=== PATIENT | male | born 1980 | race Caucasian/White ===

== ENCOUNTER 2023-05-25 20:51 | Inpatient (IN) | payer SELFPAY ==
[2023-05-25 22:06] VITALS: BMI 28.0
[2023-05-25] MEDS ORDERED: Ketorolac Tromethamine 30 MG/ML VIAL IVP PRN (22:15)
[2023-05-25] MEDS ORDERED: Ondansetron PF 4 MG/2 ML Vial IVP PRN (22:16)
[2023-05-25] MEDS ORDERED: Ondansetron ODT 4 MG TAB PO PRN (22:17)
[2023-05-25] MEDS ORDERED: Acetaminophen 325 MG TAB PO PRN (22:19)
[2023-05-25] MEDS ORDERED: FLU VACC QS2023-24(6MOS UP)/PF 60 MCG/0.5 ML SYRINGE IM ONE (22:30)
[2023-05-25] MEDS ORDERED: Zolpidem Tartrate 5 MG TAB PO PRN (22:54)
[2023-05-25] MEDS ORDERED: Guaifenesin DM 100-10/5 ML UDCUP PO PRN (22:54)
[2023-05-25] MEDS ORDERED: Calcium Carbonate 500 MG ChewTAB PO PRN (22:54)
[2023-05-25] MEDS ORDERED: Ventolin HFA Inhaler 60 PUFF INHALER INH PRN (22:57)
[2023-05-25] MEDS ORDERED: Ipratropium/Albuterol 3 ML NEB NEB SCH (23:00)
[2023-05-25] MEDS: HYDROcodone/Acetaminophen 5/325 mg Tablet PO PRN (23:23)
[2023-05-25] MEDS: Cefepime 2 GM in Sodium Chloride 0.9% 100 ML IVPB SCH (23:27)
[2023-05-25] MEDS ORDERED: Nicotine 14 MG PATCH TD SCH (23:59)
[2023-05-25] MEDS ORDERED: Lactated Ringer's 1,000 ML IV SCH (23:59)
[2023-05-26 03:40] LABS: Legionella Urinary Ag Negative (Negative); Strep pneumo Urine Ag NEGATIVE (NEGATIVE)
[2023-05-26] MEDS: HYDROcodone/Acetaminophen 5/325 mg Tablet PO PRN ×3 (04:25→20:53)
[2023-05-26 06:18] LABS: #Monocytes 0.9 10x3/uL (0.0-1.1); #Neutrophils 14.2 10x3/uL (1.5-8.4); %Basophils 0.2 % (0.0-2.0); %Eosinophils 0.1 % (0.0-6.0); %Lymphocytes 10.7 % (18.0-47.0); %Monocytes 5.3 % (0.0-10.0); %Neutrophils 82.6 % (40.0-75.0); Hematocrit 33.3 % (38.8-50.0); Hemoglobin 11.6 g/dL (13.5-17.5); Mean Corpuscular HGB CONC 34.8 g/dL (32.0-36.0); Mean Corpuscular Hemoglobin 29.2 pg (27.0-33.0); Mean Corpuscular Volume 83.9 fl (81.2-95.1); Mean Platelet Volume 10.2 fl (7.4-10.4); Platelet Count 422 10x3/uL (150-450); RBC Distribution Width 12.9 % (11.5-14.5); Red Blood Cell (RBC) Count 3.97 10x6/uL (4.32-5.72); White Blood Cell (WBC) Count 17.1 10x3/uL (3.5-10.5)
[2023-05-26 06:31] LABS: Anion Gap 14 mmol/L (10-20); BUN (Urea Nitrogen) 11 mg/dL (8.9-20.6); Calc. Creatinine Clearance 154 mL/min (70-130); Calcium 9.1 mg/dL (7.8-10.44); Carbon Dioxide 21 mmol/L (22-29); Chloride 108 mmol/L (98-107); Estimated GFR 112; Glucose 151 mg/dL (70-105); Potassium 3.6 mmol/L (3.5-5.1); Sodium 139 mmol/L (136-145)
[2023-05-26] MEDS ORDERED: Doxycycline 100 MG in Sodium Chloride 0.9% 100 ML IVPB SCH (09:00)
[2023-05-26] MEDS: Famotidine 20 MG TAB PO SCH ×2 (09:36→20:39)
[2023-05-26] MEDS: Benzonatate 100 MG CAP PO SCH ×3 (09:36→20:39)
[2023-05-26] MEDS: Senokot S 8.6-50 MG TAB PO PRN (09:36)
[2023-05-26] MEDS ORDERED: Lorazepam 1 MG TAB PO PRN (11:09)
[2023-05-26] MEDS ORDERED: Electrolyte Replacement Protocol 1 EACH FS SCH (11:15)
[2023-05-26] MEDS ORDERED: Thiamine 100 MG TAB PO SCH ×2 (12:00)
[2023-05-26] MEDS ORDERED: Folic Acid 1 MG TAB PO SCH (12:00)
[2023-05-26] MEDS ORDERED: Magnesium 2 GM/50 ML(in water) 2 GM in Premix 1 BAG IVPB SCH (12:00)
[2023-05-26] MEDS ORDERED: Multivit, Therapeutic 1 TAB PO SCH (12:00)
[2023-05-26] MEDS: Lorazepam 1 MG TAB PO SCH ×2 (13:10→17:05)
[2023-05-26 13:54] LABS: Amphetamine Not Detected (NotDetected); Barbiturates Screen Not Detected (NotDetected); Benzodiazepine Screen Not Detected (NotDetected); Cocaine Metabolite Screen Not Detected (NotDetected); Methadone Not Detected (NotDetected); Methamphetamine Not Detected (NotDetected); Opiate Screen Detected (NotDetected); Oxycodone Screen Not Detected (NotDetected); Phencyclidine (PCP) Not Detected (NotDetected); THC/Cannabinoid Screen Detected (NotDetected); Tricyclic Screen Not Detected (NotDetected)
[2023-05-26 14:31] LABS: Bilirubin Neg (Negative); Blood, Urine Negative (Negative); Clarity Clear (Clear); Glucose, Urine (Dipstick) Normal (Negative); Ketone, Urine Negative (Negative); Leukocyte Negative (Negative); Nitrite Negative (Negative); Protein, Urine (Dipstick) 15 mg/dl (Neg-Trace); Specific Gravity, Urine 1.005 (1.005-1.030); Urobilinogen Normal mg/dL (Less than 2)
[2023-05-26] MEDS: Cefepime 2 GM in Sodium Chloride 0.9% 100 ML IVPB SCH (15:53)
[2023-05-26] MEDS ORDERED: Ondansetron PF 4 MG/2 ML Vial IVP PRN (16:13)
[2023-05-26] MEDS ORDERED: Ondansetron ODT 4 MG TAB PO PRN (16:13)
[2023-05-26] MEDS: Ipratropium/Albuterol 3 ML NEB NEB PRN (20:27)
[2023-05-26] MEDS: guaiFENesin ER 600 MG TAB PO SCH (20:39)
[2023-05-26] MEDS: cefTRIAXone\\ROCEPHIN 2 GM in Sodium Chloride 0.9% 100 ML IVPB SCH (20:39)
[2023-05-26] MEDS: LevoFLOXacin 750 mg/D5W 750 MG in Premix 1 BAG IVPB SCH (20:39)
[2023-05-27] MEDS: Lorazepam 1 MG TAB PO SCH ×5 (06:37→23:02)
[2023-05-27 07:57] LABS: #Basophils 0.1 10x3/uL (0.0-0.2); #Eosinphils 0.1 10x3/uL (0.0-0.5); #Monocytes 1.2 10x3/uL (0.0-1.1); #Neutrophils 10.3 10x3/uL (1.5-8.4); %Basophils 0.5 % (0.0-2.0); %Eosinophils 0.4 % (0.0-6.0); %Lymphocytes 25.1 % (18.0-47.0); %Monocytes 7.7 % (0.0-10.0); %Neutrophils 63.7 % (40.0-75.0); Hematocrit 34.7 % (38.8-50.0); Hemoglobin 11.8 g/dL (13.5-17.5); Mean Corpuscular Hemoglobin 29.1 pg (27.0-33.0); Mean Corpuscular Volume 85.7 fl (81.2-95.1); Mean Platelet Volume 9.9 fl (7.4-10.4); Platelet Count 477 10x3/uL (150-450); RBC Distribution Width 13.2 % (11.5-14.5); Red Blood Cell (RBC) Count 4.05 10x6/uL (4.32-5.72); White Blood Cell (WBC) Count 16.2 10x3/uL (3.5-10.5)
[2023-05-27 08:54] LABS: Phosphorus 4.2 mg/dL (2.3-4.7)
[2023-05-27 09:05] LABS: Anion Gap 16 mmol/L (10-20); BUN (Urea Nitrogen) 13 mg/dL (8.9-20.6); Calc. Creatinine Clearance 146 mL/min (70-130); Calcium 8.6 mg/dL (7.8-10.44); Carbon Dioxide 22 mmol/L (22-29); Chloride 108 mmol/L (98-107); Estimated GFR 111; Glucose 98 mg/dL (70-105); Magnesium 2.1 mg/dL (1.6-2.6); Potassium 3.9 mmol/L (3.5-5.1); Sodium 142 mmol/L (136-145)
[2023-05-27] MEDS: Folic Acid 1 MG TAB PO SCH (09:42)
[2023-05-27] MEDS: guaiFENesin ER 600 MG TAB PO SCH ×2 (09:42→20:00)
[2023-05-27] MEDS: Famotidine 20 MG TAB PO SCH ×2 (09:43→20:00)
[2023-05-27] MEDS: Thiamine 100 MG TAB PO SCH (09:43)
[2023-05-27] MEDS: Benzonatate 100 MG CAP PO SCH ×3 (09:43→20:00)
[2023-05-27] MEDS: HYDROcodone/Acetaminophen 5/325 mg Tablet PO PRN ×3 (09:44→20:05)
[2023-05-27] MEDS: Multivit, Therapeutic 1 TAB PO SCH (09:44)
[2023-05-27] MEDS ORDERED: Acetaminophen 325 MG TAB PO PRN (10:21)
[2023-05-27] MEDS ORDERED: Lorazepam 1 MG TAB PO PRN (11:09)
[2023-05-27 12:45] LABS: HIV (1/2) Antibody/Antigen Non-Reactive (NonReactive); HIV 1/2 INDEX 0.15 S/CO (<1.00); Hep C IgG Ab Non-Reactive S/CO (NonReactive); Hep C Index 0.05 S/CO (0-0.79)
[2023-05-27] MEDS: cefTRIAXone\\ROCEPHIN 2 GM in Sodium Chloride 0.9% 100 ML IVPB SCH (20:00)
[2023-05-27] MEDS: LevoFLOXacin 750 mg/D5W 750 MG in Premix 1 BAG IVPB SCH (20:34)
[2023-05-28] MEDS: HYDROcodone/Acetaminophen 5/325 mg Tablet PO PRN ×5 (02:46→22:27)
[2023-05-28] MEDS: Lorazepam 1 MG TAB PO SCH (05:41)
[2023-05-28 07:09] LABS: #Basophils 0.1 10x3/uL (0.0-0.2); #Eosinphils 0.2 10x3/uL (0.0-0.5); #Monocytes 1.2 10x3/uL (0.0-1.1); #Neutrophils 8.1 10x3/uL (1.5-8.4); %Basophils 0.5 % (0.0-2.0); %Eosinophils 1.5 % (0.0-6.0); %Lymphocytes 24.1 % (18.0-47.0); %Monocytes 9.2 % (0.0-10.0); %Neutrophils 61.2 % (40.0-75.0); Hematocrit 36.1 % (38.8-50.0); Hemoglobin 12.1 g/dL (13.5-17.5); Mean Corpuscular HGB CONC 33.5 g/dL (32.0-36.0); Mean Corpuscular Hemoglobin 28.5 pg (27.0-33.0); Mean Corpuscular Volume 85.1 fl (81.2-95.1); Mean Platelet Volume 9.4 fl (7.4-10.4); Platelet Count 485 10x3/uL (150-450); RBC Distribution Width 13.2 % (11.5-14.5); Red Blood Cell (RBC) Count 4.24 10x6/uL (4.32-5.72); White Blood Cell (WBC) Count 13.2 10x3/uL (3.5-10.5)
[2023-05-28 07:50] LABS: ALT (SGPT) 9 U/L (8-55); AST (SGOT) 11 U/L (5-34); Albumin 3.2 g/dL (3.5-5.0); Alkaline Phosphatase 58 U/L (40-110); Anion Gap 14 mmol/L (10-20); BUN (Urea Nitrogen) 10 mg/dL (8.9-20.6); Bilirubin, Total 0.2 mg/dL (0.2-1.2); Calc. Creatinine Clearance 154 mL/min (70-130); Calcium 8.8 mg/dL (7.8-10.44); Carbon Dioxide 23 mmol/L (22-29); Chloride 106 mmol/L (98-107); Estimated GFR 112; Globulin 2.8 g/dL (2.4-3.5); Glucose 94 mg/dL (70-105); Magnesium 1.7 mg/dL (1.6-2.6); Potassium 3.8 mmol/L (3.5-5.1); Sodium 139 mmol/L (136-145)
[2023-05-28] MEDS ORDERED: hydrALAZINE 20 MG/ML VIAL SLOW IVP PRN (07:54)
[2023-05-28] MEDS ORDERED: Magnesium 2 GM/50 ML(in water) 2 GM in Premix 1 BAG IVPB SCH (09:00)
[2023-05-28] MEDS ORDERED: Magnesium 2 GM/50 ML BAG (IN WATER) ONE (10:33)
[2023-05-28] MEDS: Famotidine 20 MG TAB PO SCH ×2 (10:37→20:57)
[2023-05-28] MEDS: Thiamine 100 MG TAB PO SCH (10:37)
[2023-05-28] MEDS: Benzonatate 100 MG CAP PO SCH ×3 (10:37→22:28)
[2023-05-28] MEDS: Multivit, Therapeutic 1 TAB PO SCH (10:37)
[2023-05-28] MEDS: Folic Acid 1 MG TAB PO SCH (10:37)
[2023-05-28] MEDS: guaiFENesin ER 600 MG TAB PO SCH ×2 (10:37→20:57)
[2023-05-28] MEDS ORDERED: Lorazepam 1 MG TAB PO PRN (11:09)
[2023-05-28] MEDS ORDERED: Lorazepam 0.5 MG TAB PO SCH (11:15)
[2023-05-28] MEDS: Senokot S 8.6-50 MG TAB PO PRN (18:04)
[2023-05-28] MEDS: Ipratropium/Albuterol 3 ML NEB NEB PRN (20:55)
[2023-05-28] MEDS: cefTRIAXone\\ROCEPHIN 2 GM in Sodium Chloride 0.9% 100 ML IVPB SCH (20:57)
[2023-05-28] MEDS: LevoFLOXacin 750 mg/D5W 750 MG in Premix 1 BAG IVPB SCH (22:28)
[2023-05-29] MEDS: HYDROcodone/Acetaminophen 5/325 mg Tablet PO PRN ×3 (05:36→15:59)
[2023-05-29 05:42] LABS: #Basophils 0.1 10x3/uL (0.0-0.2); #Eosinphils 0.2 10x3/uL (0.0-0.5); #Monocytes 0.9 10x3/uL (0.0-1.1); #Neutrophils 5.3 10x3/uL (1.5-8.4); %Basophils 0.5 % (0.0-2.0); %Monocytes 8.8 % (0.0-10.0); %Neutrophils 54.8 % (40.0-75.0); Hematocrit 36.1 % (38.8-50.0); Hemoglobin 12.2 g/dL (13.5-17.5); Mean Corpuscular HGB CONC 33.8 g/dL (32.0-36.0); Mean Corpuscular Hemoglobin 28.4 pg (27.0-33.0); Mean Corpuscular Volume 84.1 fl (81.2-95.1); Mean Platelet Volume 9.1 fl (7.4-10.4); Platelet Count 465 10x3/uL (150-450); RBC Distribution Width 13.1 % (11.5-14.5); Red Blood Cell (RBC) Count 4.29 10x6/uL (4.32-5.72); White Blood Cell (WBC) Count 9.7 10x3/uL (3.5-10.5)
[2023-05-29] MEDS: Ipratropium/Albuterol 3 ML NEB NEB PRN (07:30)
[2023-05-29] MEDS ORDERED: Magnesium 2 GM/50 ML(in water) 2 GM in Premix 1 BAG IVPB SCH (09:00)
[2023-05-29] MEDS: guaiFENesin ER 600 MG TAB PO SCH (09:28)
[2023-05-29] MEDS: Famotidine 20 MG TAB PO SCH (09:28)
[2023-05-29] MEDS: Thiamine 100 MG TAB PO SCH (09:29)
[2023-05-29] MEDS: Benzonatate 100 MG CAP PO SCH ×2 (09:29→16:00)
[2023-05-29] MEDS: Folic Acid 1 MG TAB PO SCH (09:29)
[2023-05-29] MEDS: Multivit, Therapeutic 1 TAB PO SCH (09:29)
[2023-05-29] MEDS ORDERED: SUMAtriptan Succinate 50 MG TAB PO SCH (09:30)
[2023-05-29] MEDS ORDERED: Lorazepam 0.5 MG TAB PO PRN (11:09)
[2023-05-29 16:36] VITALS: BP 120/92; TEMP 98.2
== END 2023-05-29 18:35 | disposition home or self-care (01) | DRG 871 ==
LOC: CSHTELE 21:50
PROVIDERS: ADMIT Internal Medicine; ATTEND Internal Medicine
DX: A41.59 Other Gram-negative sepsis (principal); J13 Pneumonia due to Streptococcus pneumoniae; J96.01 Acute respiratory failure with hypoxia; E87.6 Hypokalemia; Z96.641 Presence of right artificial hip joint; R65.20 Severe sepsis without septic shock; F17.210 Nicotine dependence, cigarettes, uncomplicated; F12.929 Cannabis use, unspecified with intoxication, unspecified
CPT/HCPCS: 36415; 80048; 80053; 80306; 80307; 81003; 83735; 84100; 84145; 85025; 86803; 87040; 87070; 87205; 87389; 87449; 87899; 94640; 94760; J0692; J0696; J1650; J1956; J2405; J3475; J3490; J7120; J7620